=== PATIENT | male | born 1950 | race Caucasian/White ===

== ENCOUNTER 2018-07-04 20:02 | Emergency (ER) | payer MEDICARE, OTHER ==
--- NOTE | 2018-07-04 20:34 | ED Physician Documentation ---
Fall - HISTORIAN Historian: patient - HPI Stated Complaint: Fall Chief Complaint: Fall Onset: hours (2) Where: home Context: other (slipped down the stairs 13 ) Associated Symptoms:: no loss of consciousness Location of Pain/Injury: head, neck, face, mid back, upper extremity, lower extremity Injury to Right Extremity: knee Injury to Left Extremity: forearm Further Comments: yes (He and state he fell down 13 stairs (wood and concrete) he did not have any LOC he "cussed all the way down" he is not sure if he slipped or his knee "gave out" he has right knee pain . Left forearm pain neck back and head pain. He has no nausea. He did not take any OTC meds prior to arrival. EMS did respond although he declined treatment.) - ROS CONST: no problems - PAST HX Allergies/Adverse Reactions: Allergies Allergy/AdvReac Type Severity Reaction Status Date / Time No Known Allergies Allergy Verified 07/04/18 20:21 - SOCIAL HX Smoking History: non-smoker Alcohol Use: none Drug Use: none - FAMILY HX Family History: none - VITAL SIGNS Vital Signs: Vital Signs Temp Pulse Resp BP Pulse Ox 98.5 F 76 16 200/90 95 07/04/18 20:04 07/04/18 20:04 07/04/18 20:04 07/04/18 20:04 07/04/18 20:04 - REVIEWED ASSESSMENTS Nursing Assessment Reviewed: Yes Vitals Reviewed: Yes ED Results Lab/Radiology - Radiology Radiology Impressions: CT cervical spine Date of examination: July 04, 2018. New CLINICAL HISTORY: fell down stairs (Hx) / ITS.REASON Fall neck pain TECHNIQUE: 2.5 mm contiguous axial images of the cervical spine with sagittal and coronal reconstructions. FINDINGS: Multilevel degenerative cervical spondylosis is present with accentuated and of the normal cervical lordosis. Bilateral degenerative facet joint changes and degenerative disc space narrowing are noted. The cervical vertebral bodies and posterior elements are intact. There is no evidence of acute fracture or subluxation. The facets are in proper relationship bilaterally. The craniocervical and cervicothoracic junctions are normal. IMPRESSION: No evidence of acute cervical spine fracture or subluxation. Multilevel degenerative cervical spondylosis. Electronically signed on July 04, 2018 8:59:57 PM CDT by: Kyler Gore CT brain noncontrast Date of study: July 04, 2018. CLINICAL HISTORY: fell down stairs (Hx) / ITS.REASON fall TECHNIQUE: 5 mm contiguous axial images of the brain, noncontrast. FINDINGS: No comparison studies are provided. Diffuse cortical atrophy is present There is no evidence of intracranial mass effect, hemorrhage, or acute hydrocephalus. The lateral ventricles are symmetrical and the 4th ventricle is midline without shift. No acute brain parenchymal changes or extra-axial fluid collections are identified. The posterior fossa contents are within normal limits. The calvarium is intact. The visualized sinuses and mastoid air cells are clear. IMPRESSION: No acute intracranial process. TECHNIQUE: 5 mm contiguous axial images of the chest. FINDINGS: There is no hilar or mediastinal mass. Calcified lymph nodes are present in the marilyn and mediastinum. Thoracic spondylosis and diffuse idiopathic skeletal hyperostosis are present. No acute pathology is seen in the upper abdomen. There is no hemothorax or pneumothorax. No displaced rib fractures are identified IMPRESSION: No acute chest pathology Electronically signed on July 04, 2018 9:58:57 PM CDT by: Chaka Peter CT thoracic spine Date of examination: July 04, 2018 CLINICAL HISTORY: fell down stairs (Hx) / ITS.REASON fall Note time : 07/04/2018 9:47:41 PM User : Abdi Peguero fell down stairs (DICOM Hx) TECHNIQUE: 3 mm contiguous axial images of the thoracic spine with sagittal and coronal reconstructions. FINDINGS: The sagittal and coronal reconstructions confirm normal thoracic spine alignment without evidence of acute fracture or subluxation. There is no evidence of compression deformity. The thoracic vertebral bodies are of normal height. There is multilevel disc space narrowing and spur formation. Diffuse idiopathic skeletal hyperostosis is present. 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 IMPRESSION: No evidence of acute thoracic spine fracture or subluxation. Electronically signed on July 04, 2018 10:00:54 PM CDT by: Chaka Peter Left forearm 2 views Clinical history pain Technique AP and lateral Findings: There is no fracture or dislocation. Degenerative arthritis is present at the wrist and elbow Electronically signed on July 04, 2018 10:05:00 PM CDT by: Chaka Peter CT lumbar spine Date of examination: July 04, 2018 CLINICAL HISTORY: fell down stairs (Hx) / ITS.REASON fall and pain Note time : 07/04/2018 9:48:04 PM User : Abdi Peguero fell down stairs (DICOM Hx) TECHNIQUE: 3 mm contiguous axial images of the lumbar spine with sagittal and coronal reconstructions. FINDINGS: The sagittal and coronal reconstructions confirm normal lumbar spine alignment without evidence of acute fracture or subluxation. There is no evidence of compression deformity. The lumbar vertebral bodies are of normal height. There is multilevel disc space narrowing. Multiple levels of disc bulging and posterior facet joint degenerative arthritis is present. There is borderline spinal stenosis at L3/L4. Arthritis is present the sacroiliac joints.. The u rinary bladder is quite distended IMPRESSION: No evidence of acute lumbar spine fracture or subluxation. Extensive lumbar spondylosis Electronically signed on July 04, 2018 10:04:21 PM CDT by: Chaka Peter Right knee 3 views Clinical history pain Technique AP lateral sunrise Findings: There is no fracture joint effusion or dislocation. A fabella is present posterior knee joint. Lucencies in the proximal tibia measuring up to 1.4 cm are present of uncertain etiology. Consider followup MRI the tibia Electronically signed on July 04, 2018 10:07:18 PM CDT by: Chaka Pteer TECHNIQUE: 1 mm contiguous axial images of the facial bones non contrast. FINDINGS: The mastoid air cells are clear. The mandible appears intact. Zygomatic arches are intact. Multi sinus mucosal thickening is present. No orbital fracture is identified. The orbital floors are intact. There is no frontal bone fracture. The nasal bones are unremarkable. There is no orbital emphysema. Nasal septal deviation to the left is present.. Pterygoid plates are intact IMPRESSION: Multi sinus mucosal thickening. Nasal septal deviation to the left No displaced facial bone fractures identified. Electronically signed on July 04, 2018 10:12:59 PM CDT by: Chaka Quintana Orders: ED Orders Category Date Time Status CT BRAIN W/O CONTRAST Stat Exams 07/04/[address] C-SPINE W/O CONTRAST Stat Exams 07/04/[address] CHEST W/O CONTRAST Stat Exams 07/04/[address] L-SPINE W/O CONTRAST Stat Exams 07/04/[address] MAXILLOFACIAL W/O DYE Stat Exams 07/04/[address] T-SPINE W/O CONTRAST Stat Exams 07/04/18 Ordered FOREARM 2 VIEWS [RAD] Stat Exams 07/04/18 Ordered KNEE 3 VIEWS [RAD] Stat Exams 07/04/18 Ordered Fall Physical Exam - Physical Exam General Appearance: no acute distress, alert, c-collar in ED Head: trauma (laceration on right forehead near hair line approx 2 cm superfical ) Neck: pain with neck movement Eye: LACY ENT: nml external inspection, no dental injury, no oral injury, airway nml Resp/CVS: chest non-tender, no ecchymosis, breath sounds nml, no resp. distress, heart sounds nml. No: rib tenderness Abdomen: soft, normal bowel sounds, no distension Neuro: oriented x3, CN's nml as tested, sensation nml, motor nml, mood/affect nml, corrective and manual arts therapist nml, reflexes nml Skin: color nml, no rash, other (abrasion on left forearm FROM ) Back: normal inspection Extremities: atraumatic, pelvis stable, hips non-tender, no pedal edema, nml ROM, nml color/temp Joint: joints nml - Jaiden Coma Score Eyes Open: Spontaneous Speech: Oriented Motor: Obeys Commands Discharge Clincal Impression: Fall Qualifiers: Encounter type: initial encounter Qualified Code(s): W19.XXXA - Unspecified fall, initial encounter Referrals: Mainor Ramírez MD [Primary Care Provider] - 2 Days Comments: 1. OTC meds as directed as needed for pain 2. Flexeril 10 mg take 1 by mouth every 8 hours as needed for muscle pain 3. Follow up with PCP In 2-4 days 4. Return to ER for any increased concerns Condition: Stable Disposition: 01 HOME, SELF-CARE Decision to Admit: NO Date of Decison to Admit: 07/04/18 Decision Time: 22:15
[2018-07-04 20:57] VITALS: BP 152/87
--- NOTE | 2018-07-04 22:02 | Diagnostic Imaging Report ---
CODY KING [facility] [address] [facility] [address] [place], [place]. [address] Report Submission Date: July 04, 2018 9:02:12 PM CDT Patient Study Name: DONNA CRAWFORD Date: July 04, 2018 8:28:17 PM CDT Modality Type: CT Gender: M Description: CT BRAIN W/O CONTRAST : 46 Institution: [facility] Physician: CODY KING CT brain noncontrast Date of study: July 04, 2018. CLINICAL HISTORY: fell down stairs (Hx) / ITS.REASON fall TECHNIQUE: 5 mm contiguous axial images of the brain, noncontrast. FINDINGS: No comparison studies are provided. Diffuse cortical atrophy is present There is no evidence of intracranial mass effect, hemorrhage, or acute hydrocephalus. The lateral ventricles are symmetrical and the 4th ventricle is midline without shift. No acute brain parenchymal changes or extra-axial fluid collections are identified. The posterior fossa contents are within normal limits. The calvarium is intact. The visualized sinuses and mastoid air cells are clear. IMPRESSION: No acute intracranial process. Atrophy. Electronically signed on July 04, 2018 9:02:12 PM CDT by: Kyler GOLDEN
--- NOTE | 2018-07-04 22:04 | Diagnostic Imaging Report ---
CODY KING [facility] [address] [facility] [address] [place], [place]. [address] Report Submission Date: July 04, 2018 9:58:57 PM CDT Patient Study Name: DONNA CRAWFORD Date: July 04, 2018 9:06:07 PM CDT Modality Type: CT Gender: M Description: CT CHEST W/O CONTRAST : 46 Institution: [facility] Physician: CODY KIGN CT chest non contrast Date of study: July 04, 2018 there is no hilar or mediastinal mass. No mediastinal hematoma is seen. Are calcified hilar and mediastinal lymph nodes. Lung windows 2 not show a hemothorax or pneumothorax. There is thoracic spondylosis. CLINICAL HISTORY: fell down stairs (Hx) / ITS.REASON fall Note time : 07/04/2018 9:47:20 PM User : Abdi Peguero fell down stairs (DICOM Hx) TECHNIQUE: 5 mm contiguous axial images of the chest. FINDINGS: There is no hilar or mediastinal mass. Calcified lymph nodes are present in the marilyn and mediastinum. Thoracic spondylosis and diffuse idiopathic skeletal hyperostosis are present. No acute pathology is seen in the upper abdomen. There is no hemothorax or pneumothorax. No displaced rib fractures are identified IMPRESSION: No acute chest pathology Electronically signed on July 04, 2018 9:58:57 PM CDT by: Chaka GOLDEN
--- NOTE | 2018-07-04 22:06 | Diagnostic Imaging Report ---
CODY KING [facility] [address] [facility] [place], [place]. [address] Report Submission Date: July 04, 2018 10:00:54 PM CDT Patient Study Name: DONNA CRAWFORD Date: July 04, 2018 9:12:22 PM CDT Modality Type: CT Gender: M Description: CT T-SPINE W/O CONTRAS : 46 Institution: [facility] Physician: CODY KING CT thoracic spine Date of examination: July 04, 2018 CLINICAL HISTORY: fell down stairs (Hx) / ITS.REASON fall Note time : 07/04/2018 9:47:41 PM User : Abdi Peguero fell down stairs (DICOM Hx) TECHNIQUE: 3 mm contiguous axial images of the thoracic spine with sagittal and coronal reconstructions. FINDINGS: The sagittal and coronal reconstructions confirm normal thoracic spine alignment without evidence of acute fracture or subluxation. There is no evidence of compression deformity. The thoracic vertebral bodies are of normal height. There is multilevel disc space narrowing and spur formation. Diffuse idiopathic skeletal hyperostosis is present. 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 IMPRESSION: No evidence of acute thoracic spine fracture or subluxation. Electronically signed on July 04, 2018 10:00:54 PM CDT by: [facility]
--- NOTE | 2018-07-04 22:07 | Diagnostic Imaging Report ---
CODY KING [facility] [address] [facility] [address] [place], [place]. [address] Report Submission Date: July 04, 2018 10:04:21 PM CDT Patient Study Name: DONNA CRAWFORD Date: July 04, 2018 9:15:23 PM CDT Modality Type: CT Gender: M Description: CT L-SPINE W/O CONTRAS : 46 Institution: [facility] Physician: CODY KING CT lumbar spine Date of examination: July 04, 2018 CLINICAL HISTORY: fell down stairs (Hx) / ITS.REASON fall and pain Note time : 07/04/2018 9:48:04 PM User : Abdi Peguero fell down stairs (DICOM Hx) TECHNIQUE: 3 mm contiguous axial images of the lumbar spine with sagittal and coronal reconstructions. FINDINGS: The sagittal and coronal reconstructions confirm normal lumbar spine alignment without evidence of acute fracture or subluxation. There is no evidence of compression deformity. The lumbar vertebral bodies are of normal height. There is multilevel disc space narrowing. Multiple levels of disc bulging and posterior facet joint degenerative arthritis is present. There is borderline spinal stenosis at L3/L4. Arthritis is present the sacroiliac joints.. The urinary bladder is quite distended IMPRESSION: No evidence of acute lumbar spine fracture or subluxation. Extensive lumbar spondylosis Electronically signed on July 04, 2018 10:04:21 PM CDT by: Chaka GOLDEN
--- NOTE | 2018-07-04 22:08 | Diagnostic Imaging Report ---
CODY KING [facility] [address] [address] Report Submission Date: July 04, 2018 10:05:00 PM CDT Patient Study Name: DONNA CRAWFORD Date: July 04, 2018 9:27:10 PM CDT Modality Type: DX Gender: M Description: FOREARM 2 VIEWS : 46 Institution: [facility] Physician: CODY KING Left forearm 2 views Clinical history pain Technique AP and lateral Findings: There is no fracture or dislocation. Degenerative arthritis is present at the wrist and elbow Electronically signed on July 04, 2018 10:05:00 PM CDT by: Chaka GOLDEN
--- NOTE | 2018-07-04 22:09 | Diagnostic Imaging Report ---
CODY KING [facility] [address] [facility] [address] [place], [place]. [address] Report Submission Date: July 04, 2018 10:07:18 PM CDT Patient Study Name: DONNA CRAWFORD Date: July 04, 2018 9:22:20 PM CDT Modality Type: DX Gender: M Description: KNEE 3 VIEWS : 46 Institution: [facility] Physician: CODY KING Right knee 3 views Clinical history pain Technique AP lateral sunrise Findings: There is no fracture joint effusion or dislocation. A fabella is present posterior knee joint. Lucencies in the proximal tibia measuring up to 1.4 cm are present of uncertain etiology. Consider followup MRI the tibia Electronically signed on July 04, 2018 10:07:18 PM CDT by: Chaka GOLDEN
--- NOTE | 2018-07-04 22:11 | Diagnostic Imaging Report ---
CODY KING [facility] [address] [facility] [address] [place], [place]. [address] Report Submission Date: July 04, 2018 8:59:57 PM CDT Patient Study Name: DONNA CRAWFORD Date: July 04, 2018 8:33:53 PM CDT Modality Type: CT Gender: M Description: CT C-SPINE W/O CONTRAS : 46 Institution: [facility] Physician: CODY KING CT cervical spine Date of examination: July 04, 2018. New CLINICAL HISTORY: fell down stairs (Hx) / ITS.REASON Fall neck pain TECHNIQUE: 2.5 mm contiguous axial images of the cervical spine with sagittal and coronal reconstructions. FINDINGS: Multilevel degenerative cervical spondylosis is present with accentuated and of the normal cervical lordosis. Bilateral degenerative facet joint changes and degenerative disc space narrowing are noted. The cervical vertebral bodies and posterior elements are intact. There is no evidence of acute fracture or subluxation. The facets are in proper relationship bilaterally. The craniocervical and cervicothoracic junctions are normal. IMPRESSION: No evidence of acute cervical spine fracture or subluxation. Multilevel degenerative cervical spondylosis. Electronically signed on July 04, 2018 8:59:57 PM CDT by: Kyler GOLDEN
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
[2018-07-04] MEDS: CYCLOBENZAPRINE HCL 10 MG TABLET PO ONE (22:27)
[2018-07-05 07:01] LABS: APPEARANCE,URINE CLEAR (CLEAR); COLOR,URINE YELLOW (YELLOW); OCCULT BLOOD,URINE NEGATIVE (NEGATIVE); UROBILINOGEN URINE 0.2 Eu (0.2-1.0)
== END 2018-07-04 22:28 | disposition home or self-care (01) ==
LOC: ED 20:02
DX: M47.812 Spondylosis without myelopathy or radiculopathy, cervical region (principal); M47.816 Spondylosis without myelopathy or radiculopathy, lumbar region; J34.2 Deviated nasal septum
CPT/HCPCS: 70450; 70486; 71250; 72125; 72128; 72131; 73090; 73562; 81002; 99284; 99285